=== PATIENT | female | born 1965 | race Caucasian/White ===

== ENCOUNTER 2021-02-10 11:59 | Outpatient (CLI) | payer OTHER | END 2021-02-10 12:00 | disposition home or self-care (01) | LOC: SCSRAD 11:59 | PROVIDERS: ATTEND Physician Assistant | DX: S90.211A Contusion of right great toe with damage to nail, initial encounter (principal); M54.50 Low back pain, unspecified; M47.816 Spondylosis without myelopathy or radiculopathy, lumbar region | CPT/HCPCS: 72100 ==